=== PATIENT | female | born 1975 | race Caucasian/White ===

== ENCOUNTER → 2022-06-18 10:05 | Outpatient (BNVA) | payer BC, SELFPAY | PROVIDERS: Visit Provider Family Medicine | DX: I10 Essential (primary) hypertension (principal); F17.219 Nicotine dependence, cigarettes, with unspecified nicotine-induced disorders; F41.9 Anxiety disorder, unspecified; F32.A Depression, unspecified; K21.9 Gastro-esophageal reflux disease without esophagitis | CPT/HCPCS: 80053; 80061; 84443; 85025 ==

== ENCOUNTER → 2023-03-18 07:38 | Outpatient (BNVA) | payer BC, SELFPAY | PROVIDERS: PCP Family Medicine; Visit Provider Nurse Practitioner Women's Health | DX: N84.1 Polyp of cervix uteri (principal); Z01.419 Encounter for gynecological examination (general) (routine) without abnormal findings; Z87.42 Personal history of other diseases of the female genital tract | CPT/HCPCS: 88175; 88305 ==

== ENCOUNTER → 2023-09-21 10:10 | Outpatient (BNVA) | payer BC, SELFPAY | PROVIDERS: PCP Family Medicine; Visit Provider Nurse Practitioner Family | DX: R07.9 Chest pain, unspecified (principal); R91.1 Solitary pulmonary nodule | CPT/HCPCS: 1008F; 1126F; 1160F; 3074F; 3079F; 71046; 84484; 93005 ==

== ENCOUNTER 2023-09-27 10:13 | Outpatient (CLI) | payer BC, SELFPAY ==
--- NOTE | 2023-09-27 10:30 | CT_ITS ---
WS: [id number] CT chest w con* [id number] HISTORY: R91.1 - Solitary pulmonary nodule TECHNIQUE: Axial imaging performed through the thorax. Coronal and sagittal reformats are submitted. All CT scans at [facility] use at least one of these dose optimization techniques: automated exposure control; mA and/or kV adjustment per patient size (includes targeted exams where dose is mat ched to clinical indication); or iterative reconstruction. CONTRAST: Omnipaque 350; 100 mL IV. DLP: 655.45 mGy.cm COMPARISON: Radiograph 09/21/2023 Lungs and central airway: Well-circumscribed nodule with central calcification in the RIGHT upper lob e measures 9.4 mm. This corresponds to the abnormality seen on recent chest radiograph. There is an a dditional pulmonary nodule measuring 4 mm in the RIGHT upper lobe just medial to the dominant nodule. 6 mm nodule LEFT lower lobe, image 45 of series 4. 2 mm micronodule LEFT lower lobe, series. Image 34 series 4. Heart and pericardium: Normal size heart with no pericardial effusion. Mediastinum and joana: No mediastinum or hilar adenopathy. Vessels: Normal size aortic and pulmonary artery. No coronary artery calcifications. Chest wall and lower neck: No soft tissue masses. Upper abdomen: Hepatic steatosis. No adrenal mass. Osseous structures: Mild increase in thoracic kyphosis. No acute or remote rib fractures. IMPRESSION: 1. Well-rounded RIGHT upper lobe pulmonary nodule measures 9.4 mm with a central calcification. This corresponds to the recent nodule described by radiograph. More likely benign due to the central calc ification. 2. There are additional multilobar very small pulmonary nodules. Some of these modules are too small to characterize completely and may not be evident by PET/CT imaging. 3. Consider 3-month chest CT follow-up to reevaluate the pulmonary nodules. PET/CT imaging may be he lpful to evaluate the larger 9.4 mm nodule in the RIGHT upper lobe. 4. No adenopathy. 5. Hepatic steatosis.
[2023-09-27] MEDS: iohexol 350 mg/mL 500 mL Btl (per mL) IV (11:00)
== END 2023-09-27 10:14 | disposition home or self-care (01) ==
LOC: RAD 10:14
PROVIDERS: PCP Family Medicine; Visit Provider Nurse Practitioner Family
DX: R91.8 Other nonspecific abnormal finding of lung field (principal); K76.0 Fatty (change of) liver, not elsewhere classified
CPT/HCPCS: 71260; Q9967

== ENCOUNTER 2024-01-05 08:20 | Outpatient (CLI) | payer BC, SELFPAY ==
--- NOTE | 2024-01-05 08:30 | CT_ITS ---
WS: [id number] CT CHEST TECHNIQUE: Contrast enhanced CT of the chest with coronal and sagittal reformatted images. CLINICAL INFORMATION: Multiple pulmonary nodules, one large nodule COMPARISON: CT chest 09/27/2023 DLP: 626.[address] scans at [facility] use at least one of these dose optimization techniques: automated e xposure control; mA and/or kV adjustment per patient size (includes targeted exams where dose is matc hed to clinical indication); or iterative reconstruction. FINDINGS: Previously described centrally calcified nodule RIGHT upper lobe is unchanged measuring 10 mm. Adjace nt 4 mm satellite nodule unchanged. A few tiny subpleural nodules in the LEFT lower lobe. Partially c alcified nodule LEFT lower lobe measuring 5 mm unchanged New slightly spiculated pulmonary nodule RIGHT lower lobe medially measuring 6 mm adjacent to the mike phragm. Surrounding spiculation or inflammatory changes. Recommend 3-month follow-up. Slight hazy [place] in the lingula measuring 7 mm may be inflammatory. Normal caliber thoracic aorta. Normal thyroid gland.No mediastinal or hilar lymphadenopathy. No axill dylan lymphadenopathy. Diffuse fatty infiltration of the liver. Normal visualized ribs. Mild thoracic k yphosis and hypertrophic changes. CT/CT chest w con* [id number] IMPRESSION: 1. New slightly spiculated pulmonary nodule RIGHT lower lobe medially measuri ng 6 mm adjacent to the diaphragm. Surrounding spiculation or inflammatory chavez ges. Recommend 3-month follow-up. 2. Previously described pulmonary nodules are stable 3. No mediastinal or hilar lymphadenopathy. 4. No other significant changes.
[2024-01-05] MEDS: iohexol 350 mg/mL 500 mL Btl (per mL) IV (09:04)
== END 2024-01-05 08:21 | disposition home or self-care (01) ==
LOC: RAD 08:20
PROVIDERS: PCP Family Medicine; Visit Provider Family Medicine
DX: R91.8 Other nonspecific abnormal finding of lung field (principal); K76.0 Fatty (change of) liver, not elsewhere classified; M40.294 Other kyphosis, thoracic region
CPT/HCPCS: 71260; Q9967